=== PATIENT | female | born 1995 | race African-American/Black ===

== ENCOUNTER 2017-12-25 16:50 | Emergency (ER) | payer BC ==
[~2017-12-25] VITALS: Ht 165.1 cm; Wt 122.5 kg
[2017-12-25] MEDS ORDERED: INTROVALE1 EACH PO (17:02)
[2017-12-25 17:44] LABS: ABSOLUTE BASOPHILS 0.1 thou/uL (0.0-0.2); ABSOLUTE EOSINOPHILS 0.1 thou/uL (0.0-0.7); ABSOLUTE LYMPHOCYTES 1.9 thou/uL (0.8-5.3); ABSOLUTE MONOCYTES 0.4 thou/uL (0.0-1.2); ABSOLUTE NEUTROPHILS 6.9 thou/uL (1.6-8.1); BASOPHILS 0.6 %; EOSINOPHILS 0.9 %; HEMATOCRIT 41.2 % (37.0-47.0); HEMOGLOBIN 13.6 gm/dL (12.0-15.0); LYMPHOCYTES 20.1 %; MCH 29.2 pg (26.0-34.0); MCHC 33.1 g/dL (28.0-37.0); MCV 88.2 fL (80.0-100.0); MONOCYTES 4.3 %; MPV 7.9 fl. (7.2-11.1); NUCLEATED RBCS 0 /100WBC; PLATELET COUNT* 282 thou/uL (150-400); POLYS 74.1 %; RBC 4.67 mil/uL (4.20-5.00); RDW-CV 12.9 % (10.5-14.5); WBC 9.3 thou/uL (4.0-11.0)
[2017-12-25 17:55] LABS: ALBUMIN 3.2 g/dL (3.4-5.0); CALCIUM 8.6 mg/dL (8.5-10.1); POTASSIUM 3.7 mmol/L (3.5-5.1); TOTAL BILIRUBIN 0.3 mg/dL (<0.1-1.0)
[2017-12-25 19:24] VITALS: BP 147/82
== END 2017-12-25 19:24 | disposition home or self-care (01) ==
LOC: M.ERS 16:50
PROVIDERS: Physician Assistant
DX: G43.909 Migraine, unspecified, not intractable, without status migrainosus (principal)